=== PATIENT | male | born 1955 | race Caucasian/White ===

== ENCOUNTER 2017-08-08 20:00 | Emergency (ER) | payer SELFPAY ==
[~2017-08-08] VITALS: Ht 162.6 cm; Wt 62.5 kg
[~2017-08-08 20:00] MED LIST: HYDR-2768 PO; LISI40TA PO
[2017-08-08 20:17] VITALS: BP 139/75; PULSE 74; RESP 18; TEMP 98.3; O2SAT 99
[2017-08-08] MEDS ORDERED: TETANUS/DIPHTHERIA TOXOID ADULT 0.5 ML VIAL IM ONE (21:30)
[2017-08-08] MEDS ORDERED: BACT800T5 PO (21:55)
[2017-08-08] MEDS ORDERED: CLIN150C14 PO (21:55)
[2017-08-08] MEDS ORDERED: TRAM50TA PO (21:55)
--- NOTE | 2017-08-08 22:04 | PD ---
HPI Chief Complaint: Bite or Sting Time Seen by Provider: 21:10 Travel History International Travel<30 days: No Contact w/Intl Traveler<30days: No Traveled to known affect area: No History of Present Illness HPI This patient was bitten by a pit bull on the right forearm. Duration 3 hours. Severity is moderate. It was a dog on by one of his neighbors. He lives in [place]. I've asked registration to complete an animal control bite report so he gets proper follow-up for rabies evaluation. PFSH Past Medical History Anxiety: Yes Depression: Yes Cardiovascular Problems: Yes (HTN) Diminished Hearing: No Hepatitis: Yes (HEP C ) Hypertension: Yes Immunizations Current: Yes Past Surgical History Appendectomy: Yes Other Surgery: Yes (BACK SURGERY FRACTURE) Social History Alcohol Use: Yes (4 BEERS DAILY) Tobacco Use: Yes (1PPD) Substance Use: Yes (MARIJUANA OCC) Allergies-Medications (Allergen,Severity, Reaction): Coded Allergies: cephalexin (Verified Allergy, Unknown, TENDONS SWELL, 08/08/17) ciprofloxacin (Verified Allergy, Unknown, N/V, 08/08/17) Reported Meds & Prescriptions Reported Meds & Active Scripts Active Tramadol (Tramadol HCl) 50 Mg Tab 50 Mg PO Q6H PRN Bactrim DS (Sulfamethoxazole-Trimethoprim) 800-160 Mg Tab 1 Tab PO BID Clindamycin (Clindamycin HCl) 150 Mg Cap 300 Mg PO Q6H 7 Days Hctz (Hydrochlorothiazide) 25 Mg Tab 25 Mg PO DAILY Prinivil 40 mg (Lisinopril) 40 Mg Tab 40 Mg PO DAILY Review of Systems General / Constitutional: No: Fever Eyes: No: Drainage HENT: No: Headaches Cardiovascular: No: Chest Pain or Discomfort Respiratory: No: Cough Physical Exam Narrative CARDIOVASCULAR: Regular rate and rhythm without murmur. Extremities showed no edema or varicosities. RESPIRATORY: Respiratory effort unlabored, no retractions or use of accessory muscles. Breath sounds are clear and symmetric. GASTROINTESTINAL: Abdomen soft, non-tender, nondistended. Positive bowel sounds. No hepato-splenomegaly, or palpable masses. No guarding. NECK: Symmetrical appearance, midline trachea. No mass or crepitus. Thyroid without enlargement, tenderness, or mass. Right forearm: Dog bite is viewed. Occurs some maceration and multiple puncture wounds. There is a 1.5 cm hole in the skin with muscle visualized underneath but not injured or punctured. Data Data Last Documented VS Vital Signs Date Time Temp Pulse Resp B/P (MAP) Pulse Ox O2 Delivery O2 Flow Rate FiO2 08/08/17 20:17 98.3 74 18 139/75 (96) 99 Orders Orders Tetanus/Diphtheria Tox Adult (Tetanus/Di (08/08/17 21:30) MDM Medical Decision Making Medical Screen Exam Complete: Yes Emergency Medical Condition: Yes Medical Record Reviewed: Yes Differential Diagnosis Dog bite, skin tear, avulsion Narrative Course I have reviewed the patient's electronic medical record. Procedure note: I spent a long time irrigating out this wound. I used both the liter irrigation bottles as well as control top syringe with 18-gauge needle for high pressure irrigation. This is going to be prone to infection due to the nature of the wound and I discussed that with the patient at length I don't see any evidence of tendon or vascular injury He is neurovascularly intact I placed 1 4-0 Ethilon suture to close that large hole. I am aiming for loose closure. 4 Steri-Strips are placed to also anchor the shallow part of the wound Nonstick dressing and gauze applied followed by wrap with Zander Tetanus booster given Patient has allergy to both Augmentin and fluoroquinolone I'm giving him prescription for 1 week of both clindamycin and Bactrim as alternatives He is to look for signs of infection Registration filled out an animal control bite report. He should follow-up with them to discuss rabies Diagnosis Primary Impression: Dog bite of forearm Qualified Codes: S51.851A - Open bite of right forearm, initial encounter; W54.0XXA - Bitten by dog, initial encounter Additional Instructions: The patient was advised to follow up with their physician and return if they worsen. Follow-up with animal control to discuss rabies shots The patient was warned about potential sedation for the medications they will receive on prescription. Sutures should be removed in 7-10 days Med/Other Pt SpecificInfo: Prescription(s) given Scripts Tramadol (Tramadol) 50 Mg Tab 50 MG PO Q6H Y for PAIN, #15 TAB 0 Refills Prov: Ghanshyam Rodriguez MD 08/08/17 Sulfamethoxazole-Trimethoprim (Bactrim DS) 800-160 Mg Tab 1 TAB PO BID for Infection, #14 TAB 0 Refills Prov: Ghanshyam Rodriguez MD 08/08/17 Clindamycin (Clindamycin) 150 Mg Cap 300 MG PO Q6H for Infection for 7 Days, #56 CAP 0 Refills Prov: Ghanshyam Rodriguez MD 08/08/17 Disposition: 01 DISCHARGE HOME Condition: Stable Ghanshyam Rodriguez MD Aug 08, 2017 22:04
== END 2017-08-08 22:25 | disposition home or self-care (01) ==
LOC: PHEFT 20:00
DX: S51.851A Open bite of right forearm, initial encounter (principal); I10 Essential (primary) hypertension; B19.20 Unspecified viral hepatitis C without hepatic coma; F41.9 Anxiety disorder, unspecified; F32.9 Major depressive disorder, single episode, unspecified; F17.210 Nicotine dependence, cigarettes, uncomplicated; W54.0XXA Bitten by dog, initial encounter; Z23 Encounter for immunization; Z88.1 Allergy status to other antibiotic agents; Z79.899 Other long term (current) drug therapy
CPT/HCPCS: 12001